=== PATIENT | female | born 1990 | race Hispanic/Latino ===

== ENCOUNTER 2018-04-24 11:05 | Emergency (ER) | payer OTHER, SELFPAY ==
[2018-04-24] MEDS ORDERED: IBUPROFEN 400 MG TAB ONE (14:29)
--- NOTE | 2018-04-24 15:12 | EDPHYS ---
Physician Documentation [facility] Name: Kim Holman Age: 28 yrs Sex: Female : 1990 Arrival Date: 04/24/2018 Time: 11:08 Bed 9 Private MD: None, None ED Physician Julio Rivera HPI: 04/24 14:16 This 28 yrs old Female presents to ER via Ambulatory with complaints of Flu jmm Symptoms. 14:16 The patient or guardian reports cough, described as moderate. Onset: The jmm symptoms/episode began/occurred 1 day(s) ago. Modifying factors: The symptoms are alleviated by nothing. the symptoms are aggravated by nothing. Associated signs and symptoms: Pertinent positives: fever, sore throat. This is a 28 year old female with no chronic medical conditions that presents to the ED with complaints of cough, sore throat, and fever beginning last night. Patient states a relative was recently diagnosed with strep. . 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 - Social history:: Smoking status: Patient uses tobacco products, smokes one-half pack cigarettes per day. - Ebola Screening: : No symptoms or risks identified at this time. ROS: 14:16 Eyes: Negative for injury, pain, redness, and discharge. jmm 14:16 Neck: Negative for injury, pain, and swelling, Cardiovascular: Negative for chest pain, palpitations, and edema. 14:16 Constitutional: Positive for fever. 14:16 ENT: Positive for sore throat. 14:16 Respiratory: Positive for cough. 14:16 All other systems are negative. Exam: 14:16 Constitutional: This is a well developed, well nourished patient who is awake, alert, jmm and in no acute distress. Head/Face: atraumatic. Eyes: EOMI, no conjunctival erythema appreciated 14:16 Chest/axilla: Normal chest wall appearance and motion. Cardiovascular: Regular rate and rhythm. No edema appreciated 14:16 Abdomen/GI: Non distended, soft Back: Normal ROM Skin: General appearance color normal MS/ Extremity: Moves all extremities, no obvious deformities appreciated, no edema noted to the lower extremities Neuro: Awake and alert, normal gait Psych: Behavior is normal, Mood is normal, Patient is cooperative and pleasant 14:16 ENT: TM's: are normal, Posterior pharynx: erythema, that is mild. 14:16 Neck: ROM/movement: is normal. 14:16 Respiratory: the patient does not display signs of respiratory distress, Respirations: normal, Breath sounds: are clear throughout. Vital Signs: 11:47 BP 131 / 81; Pulse 110; Resp 18 S; Temp 99.8(O); Pulse Ox 99% on R/A; Weight 68.04 kg aa5 (R); Height 5 ft. 0 in. (152.40 cm) (R); Pain 5/10; 15:29 BP 130 / 80; Pulse 99; Resp 18; Temp 99.9; Pulse Ox 100% on R/A; dm5 11:47 Body Mass Index 29.29 (68.04 kg, 152.40 cm) aa5 MDM: 15:11 Data reviewed: vital signs, nurses notes. Counseling: I had a detailed discussion with juanita the patient and/or guardian regarding: the historical points, exam findings, and any diagnostic results supporting the discharge/admit diagnosis, lab results, the need for outpatient follow up, to return to the emergency department if symptoms worsen or persist or if there are any questions or concerns that arise at home. ED course: Patient is alert and non toxic in appearance in the ED. No signs of resp distress is appreciated. Patient is advised to follow up with pcp and otherwise given strict return precautions. patient understood and agrees with the plan of care. . 04/24 14:16 Order name: Flu; Complete Time: 15:01 [facility] 04/24 14:16 Order name: Strep; Complete Time: 15:01 [facility] Administered Medications: 14:27 Drug: Motrin 800 mg Route: PO; dm5 15:30 Follow up: Response: No adverse reaction; Temperature is decreased dm5 Disposition: 15:41 Co-signature as Attending Physician, Julio Rivera MD. rn Disposition: 04/24/18 15:12 Discharged to Home. Impression: Streptococcal pharyngitis, Influenza due to certain identified influenza viruses. - Condition is Stable. - Discharge Instructions: Influenza, Adult, Strep Throat. - Prescriptions for Amoxicillin 875 mg Oral Tablet - take 1 tablet by ORAL route every 12 hours for 10 days; 20 tablet. Tamiflu 75 mg Oral Capsule - take 1 tablet by ORAL route every 12 hours for 5 days; 10 tablet. - Medication Reconciliation Form, Thank You Letter, Antibiotic Education, Prescription Opioid Use form. - Follow up: Private Physician; When: 2 - 3 days; Reason: Recheck today's complaints, Continuance of care, Re-evaluation by your physician. Signatures: Dispatcher [employer] Emilie Kingston, RN RN dm5 Gaston Arshad PA PA jmm Nieto, Roman, MD MD rn Calderon, Audri RN RN aa5 Corrections: (The following items were deleted from the chart) 13:47 13:45 Patient medically screened. juanita grant 15:31 15:12 04/24/2018 15:12 Discharged to Home. Impression: Streptococcal pharyngitis; dm5 Influenza due to certain identified influenza viruses. Condition is Stable. Forms are Medication Reconciliation Form, Thank You Letter, Antibiotic Education, Prescription Opioid Use. Follow up: Private Physician; When: 2 - 3 days; Reason: Recheck today's complaints, Continuance of care, Re-evaluation by your physician. juanita
--- NOTE | 2018-04-24 15:12 | ER ---
Nurse's Notes [facility] Name: Kim Holman Age: 28 yrs Sex: Female : 1990 Arrival Date: 04/24/2018 Time: 11:08 Bed 9 Private MD: None, None Diagnosis: Streptococcal pharyngitis;Influenza due to certain identified influenza viruses Presentation: 04/24 11:46 Presenting complaint: Patient states: cough, sore throat, low grade fever, and fatigue aa5 that began last night. Transition of care: patient was not received from another setting of care. Onset of symptoms was April 2018. Risk Assessment: Do you want to hurt yourself or someone else? Patient reports no desire to harm self or others. Initial Sepsis Screen: Does the patient meet any 2 criteria? No. Patient's initial sepsis screen is negative. Does the patient have a suspected source of infection? No. Patient's initial sepsis screen is negative. Care prior to arrival: None. 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 - Social history:: Smoking status: Patient uses tobacco products, smokes one-half pack cigarettes per day. - Ebola Screening: : No symptoms or risks identified at this time. Screenin:30 Abuse screen: Denies threats or abuse. Nutritional screening: No deficits noted. aa5 Tuberculosis screening: No symptoms or risk factors identified. Fall Risk None identified. Assessment: 13:30 General: Appears uncomfortable, Behavior is calm, cooperative, Reports fatigue. Pain: aa5 Complains of pain in throat. Neuro: Level of Consciousness is awake, alert, obeys commands, Oriented to person, place, time, situation. Cardiovascular: Heart tones S1 S2 present Rhythm is regular. Respiratory: Reports cough Airway is patent Respiratory effort is even, unlabored, Respiratory pattern is regular, symmetrical, Breath sounds are clear bilaterally. GI: No signs and/or symptoms were reported involving the gastrointestinal system. : No signs and/or symptoms were reported regarding the genitourinary system. EENT: Throat is reddened. Derm: Skin is pink, warm \T\ dry. Musculoskeletal: Range of motion: intact in all extremities. Vital Signs: 11:47 BP 131 / 81; Pulse 110; Resp 18 S; Temp 99.8(O); Pulse Ox 99% on R/A; Weight 68.04 kg aa5 (R); Height 5 ft. 0 in. (152.40 cm) (R); Pain 5/10; 15:29 BP 130 / 80; Pulse 99; Resp 18; Temp 99.9; Pulse Ox 100% on R/A; dm5 11:47 Body Mass Index 29.29 (68.04 kg, 152.40 cm) aa5 ED Course: 11:08 Patient arrived in ED. mr 11:09 Justice Valles MD is Private Physician. mr 11:09 None, None is Private Physician. mr 11:45 Arm band placed on. aa5 11:45 Patient has correct armband on for positive identification. aa5 11:46 Triage completed. aa5 13:30 Ariella Barrios, JONY is Primary Nurse. aa5 13:39 Gaston Arshad PA is PHCP. [facility] 13:39 Julio Rivera MD is Attending Physician. [facility] 15:30 No provider procedures requiring assistance completed. Patient did not have IV access aa5 during this emergency room visit. Administered Medications: 14:27 Drug: Motrin 800 mg Route: PO; dm5 15:30 Follow up: Response: No adverse reaction; Temperature is decreased dm5 Outcome: 15:12 Discharge ordered by . [facility] 15:31 Discharged to home ambulatory. dm5 15:31 Condition: good 15:31 Discharge instructions given to patient, Instructed on discharge instructions, follow up and referral plans. medication usage, Demonstrated understanding of instructions, follow-up care, medications. 15:31 Patient left the ED. dm5 Signatures: Emilie Cabrera RN RN dm5 Gaston Arshad PA PA jmm Rivera, Mary mr Ariella Barrios RN RN aa5 Corrections: (The following items were deleted from the chart) 19:02 13:30 General: Appears uncomfortable, Behavior is calm, cooperative, aa5 aa5 19:02 13:30 Pain: Complains of pain in cough aa5 aa5 19:02 13:30 Respiratory: Airway is patent Respiratory effort is even, unlabored, Respiratory aa5 pattern is regular, symmetrical, Breath sounds are clear bilaterally. aa5
== END 2018-04-24 15:31 | disposition home or self-care (01) ==
LOC: ER 11:05
DX: J02.0 Streptococcal pharyngitis (principal); J10.1 Influenza due to other identified influenza virus with other respiratory manifestations; F17.210 Nicotine dependence, cigarettes, uncomplicated
CPT/HCPCS: 87081; 87804; 99283

== ENCOUNTER 2019-10-08 17:15 | Emergency (ER) | payer BC, SELFPAY ==
--- NOTE | 2019-10-08 19:01 | RAD REPORT ---
EXAM DESCRIPTION: US - Abdomen Exam Limited - 10/08/2019 6:42 pm CLINICAL HISTORY: ABD PAIN COMPARISON: No comparisons FINDINGS: No gallstones identified. A 4 millimeter nonshadowing echogenic focus along the gallbladde r wall is probably a small polyp. No measurable sludge. There is no wall thickening or pericholecysti c fluid. No common duct stone or biliary tree dilatation identified. IMPRESSION: No acute gallbladder or biliary tree finding. A 4 millimeter polyp is seen along the wall of the gallbladder, not regarded as significant.
[2019-10-08 19:42] LABS: Urine Blood NEGATIVE (NEG); Urine Glucose NEGATIVE (NEG); Urine Protein NEGATIVE (NEG); Urine Specific Gravity 1.025 (1.005-1.030)
[2019-10-08] MEDS ORDERED: KETOROLAC 30 MG/ML INJ ONE (20:11)
--- NOTE | 2019-10-08 20:12 | RAD REPORT ---
EXAM DESCRIPTION: RAD - Chest Single View - 10/08/2019 7:47 pm CLINICAL HISTORY: CHEST PAIN COMPARISON: None TECHNIQUE: AP portable chest image was obtained 10/08/2019 7:47 pm . FINDINGS: Lungs are clear. Heart and vasculature are normal. No measurable pleural effusion and no p neumothorax. No acute bony abnormality seen. No acute aortic findings suspected. IMPRESSION: No acute cardiopulmonary process.
[2019-10-08 20:19] LABS: Absolute Lymphocytes (CBC) 3.8 K/uL (0.7-4.9); Basophils % 0.8 % (0-1.3); Hematocrit 39.6 % (36.0-45.0); Lymphocytes % 36.6 % (15.3-44.8); MPV 9.4 fL (7.6-11.3); RBC Red Blood Cell Count 4.63 M/uL (3.86-4.86)
[2019-10-08 20:30] LABS: ALT/SGPT 26 U/L (12-78); AST/SGOT 17 U/L (15-37); Albumin 3.7 g/dL (3.4-5.0); Alkaline Phosphatase 83 U/L (45-117); BUN Blood Urea Nitrogen 11 mg/dL (7-18); Bicarbonate 23 mmol/L (21-32); Bilirubin Direct < 0.1 mg/dL (0-0.2); Bilirubin Total 0.2 mg/dL (0.2-1.0); Glucose Level 95 mg/dL (74-106); Lipase 174 U/L (73-393); Potassium 3.7 mmol/L (3.5-5.1); Protein, Total 7.5 g/dL (6.4-8.2); Sodium Level 141 mmol/L (136-145)
--- NOTE | 2019-10-08 20:36 | EDPHYS ---
Physician Documentation [facility] Name: Kim Holman Age: 29 yrs Sex: Female : 1990 Arrival Date: 10/08/2019 Time: 17:21 Bed 6 Private MD: ED Physician Kenny Mckoen HPI: 10/07 21:21 This 29 yrs old Female presents to ER via Ambulatory with complaints of kb Abdominal Pain. 21:21 The patient presents with abdominal pain in the right upper quadrant. Onset: The kb symptoms/episode began/occurred 3 day(s) ago. The symptoms do not radiate. Associated signs and symptoms: none. The symptoms are described as intermittent. Modifying factors: The symptoms are alleviated by nothing, the symptoms are aggravated by nothing. Severity of pain: At its worst the pain was moderate in the emergency department the pain is unchanged. The patient has not experienced similar symptoms in the past. The patient has not recently seen a physician. 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 - Social history:: Smoking status: Patient reports the use of cigarette tobacco products, smokes one-half pack cigarettes per day. ROS: 21:18 Constitutional: Negative for fever, chills, and weight loss, ENT: Negative for injury, kb pain, and discharge, Neck: Negative for injury, pain, and swelling, Respiratory: Negative for shortness of breath, cough, wheezing, and pleuritic chest pain, Back: Negative for injury and pain, MS/Extremity: Negative for injury and deformity, Skin: Negative for injury, rash, and discoloration, Neuro: Negative for headache, weakness, numbness, tingling, and seizure. 21:18 Cardiovascular: Positive for chest pain, of the right breast, Negative for edema, orthopnea, palpitations, paroxysmal nocturnal dyspnea. 21:18 Abdomen/GI: Positive for abdominal pain, Negative for nausea, vomiting, and diarrhea. Exam: 21:20 Constitutional: This is a well developed, well nourished patient who is awake, alert, kb and in no acute distress. Head/Face: Normocephalic, atraumatic. Cardiovascular: Regular rate and rhythm with a normal S1 and S2. No gallops, murmurs, or rubs. Normal PMI, no JVD. No pulse deficits. Respiratory: Lungs have equal breath sounds bilaterally, clear to auscultation and percussion. No rales, rhonchi or wheezes noted. No increased work of breathing, no retractions or nasal flaring. Back: No spinal tenderness. No costovertebral tenderness. Full range of motion. Skin: Warm, dry with normal turgor. Normal color with no rashes, no lesions, and no evidence of cellulitis. MS/ Extremity: Pulses equal, no cyanosis. Neurovascular intact. Full, normal range of motion. Neuro: Awake and alert, GCS 15, oriented to person, place, time, and situation. Cranial nerves II-XII grossly intact. Motor strength 5/5 in all extremities. Sensory grossly intact. Cerebellar exam normal. Normal gait. 21:20 Chest/axilla: Inspection: normal, Palpation: tenderness, that is mild, of the right breast, that totally reproduces the patient's complaints. 21:20 Abdomen/GI: Inspection: abdomen appears normal, Bowel sounds: normal, in all quadrants, Palpation: soft, in all quadrants, mild abdominal tenderness, in the right upper quadrant. Vital Signs: 17:42 BP 133 / 89; Pulse 78; Resp 16; Temp 97.6; Pulse Ox 100% on R/A; Weight 68.04 kg; iw Height 5 ft. 0 in. (152.40 cm); Pain 6/10; 20:45 BP 121 / 75; Pulse 75; Resp 18; Pulse Ox 99% ; Pain 1/10; rr5 17:42 Body Mass Index 29.29 (68.04 kg, 152.40 cm) iw MDM: 19:14 Patient medically screened. kb 20:38 Data reviewed: vital signs, nurses notes, lab test result(s), radiologic studies. Data kb interpreted: Pulse oximetry: on room air is 100 %. Interpretation: normal. Counseling: I had a detailed discussion with the patient and/or guardian regarding: the historical points, exam findings, and any diagnostic results supporting the discharge/admit diagnosis, lab results, radiology results, the need for outpatient follow up, a family practitioner, a cleaning laborer, to return to the emergency department if symptoms worsen or persist or if there are any questions or concerns that arise at home. Response to treatment: the patient's symptoms have markedly improved after treatment. 10/07 19:29 Order name: Basic Metabolic Panel; Complete Time: 20:32 kb 10/07 19:29 Order name: CBC with Diff; Complete Time: 20:23 kb 10/07 19:29 Order name: Hepatic Function; Complete Time: 20:32 kb 10/07 19:29 Order name: Lipase; Complete Time: 20:32 kb 10/07 19:30 Order name: Urine Dipstick--Ancillary (enter results); Complete Time: 19:42 kb 10/07 19:30 Order name: Urine --Ancillary (enter results); Complete Time: 19:42 kb 10/07 17:49 Order name: US Abdomen Limited; Complete Time: 19:10 kb 10/07 19:29 Order name: IV Saline Lock; Complete Time: 20:17 kb 10/07 19:29 Order name: Labs collected and sent; Complete Time: 20:17 kb 10/07 19:29 Order name: Chest Single View XRAY; Complete Time: 20:14 kb Administered Medications: 20:17 Drug: TORadol - Ketorolac 15 mg Route: IVP; Site: right antecubital; rr5 20:45 Follow up: Response: No adverse reaction rr5 Disposition: 10/08/19 20:35 Discharged to Home. Impression: Upper abdominal pain, unspecified. - Condition is Stable. - Discharge Instructions: Chest Wall Pain, [id number], Abdominal Pain, Adult, [id number]. - Prescriptions for Ibuprofen 800 mg Oral Tablet - take 1 tablet by ORAL route every 8 hours As needed take with food; 30 tablet. - Medication Reconciliation Form, Thank You Letter, Antibiotic Education, Prescription Opioid Use form. - Follow up: Emergency Department; When: As needed; Reason: Worsening of condition. Follow up: Private Physician; When: 2 - 3 days; Reason: Recheck today's complaints, Continuance of care, Re-evaluation by your physician. Signatures: Dispatcher [employer] Heidi Archibald, CHIEF INSPECTOR-C CHIEF INSPECTOR-Ckb Oskar, Radha, RN RN iw Fox, Ebenezer, RN RN rr5 Corrections: (The following items were deleted from the chart) 20:47 20:35 10/08/2019 20:35 Discharged to Home. Impression: Upper abdominal pain, rr5 unspecified. Condition is Stable. Forms are Medication Reconciliation Form, Thank You Letter, Antibiotic Education, Prescription Opioid Use. Follow up: Emergency Department; When: As needed; Reason: Worsening of condition. Follow up: Private Physician; When: 2 - 3 days; Reason: Recheck today's complaints, Continuance of care, Re-evaluation by your physician. kb
--- NOTE | 2019-10-08 20:36 | ER ---
Nurse's Notes [facility] Name: Kim Holman Age: 29 yrs Sex: Female : 1990 Arrival Date: 10/08/2019 Time: 17:21 Bed 6 Private MD: Diagnosis: Upper abdominal pain, unspecified Presentation: 10/07 17:42 Chief complaint: Patient states: sharp pain to RUQ, under right breast X 3 days, iw aggravated by movement and deep breathing, denies cough, denies nausea or vomiting. Coronavirus screen: At this time, the client does not indicate any symptoms associated with coronavirus-19. Ebola Screen: Patient negative for fever greater than or equal to 101.5 degrees Fahrenheit, and additional compatible Ebola Virus Disease symptoms Patient denies exposure to infectious person. Patient denies travel to an Ebola-affected area in the 21 days before illness onset. No symptoms or risks identified at this time. Initial Sepsis Screen: Does the patient meet any 2 criteria? No. Patient's initial sepsis screen is negative. Does the patient have a suspected source of infection? No. Patient's initial sepsis screen is negative. Risk Assessment: Do you want to hurt yourself or someone else? Patient reports no desire to harm self or others. Onset of symptoms was October 06, 2019. 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 - Social history:: Smoking status: Patient reports the use of cigarette tobacco products, smokes one-half pack cigarettes per day. Screenin:00 Abuse screen: Denies threats or abuse. Denies injuries from another. Nutritional rr5 screening: No deficits noted. Tuberculosis screening: No symptoms or risk factors identified. Fall Risk IV access (20 points). Total Carrillo Fall Scale indicates No Risk (0-24 pts). Assessment: 19:40 General: Appears in no apparent distress. uncomfortable, Behavior is calm, cooperative, rr5 appropriate for age. 19:40 Pain: Complains of pain in right upper quadrant Pain radiates to epigastric area Pain rr5 currently is 5 out of 10 on a pain scale. Quality of pain is described as aching, Pain began gradually, Is intermittent. Neuro: Level of Consciousness is awake, alert, obeys commands, Oriented to person, place, time, situation. Cardiovascular: Capillary refill < 3 seconds Patient's skin is warm and dry. Respiratory: Airway is patent Respiratory effort is even, unlabored, Respiratory pattern is regular, symmetrical. GI: Abdomen is round non-distended, Bowel sounds present X 4 quads. Abd is soft and non tender X 4 quads. Reports upper abdominal pain. : No signs and/or symptoms were reported regarding the genitourinary system. EENT: No signs and/or symptoms were reported regarding the EENT system. Derm: Skin is intact, is healthy with good turgor, Skin temperature is warm. Musculoskeletal: Capillary refill < 3 seconds. 20:45 Reassessment: Patient appears in no apparent distress at this time. Patient is alert, rr5 oriented x 3, equal unlabored respirations, skin warm/dry/pink. discharge instruction given and explained without complaints made. 20:45 Reassessment: Patient states feeling better. Patient states symptoms have improved. rr5 Vital Signs: 17:42 BP 133 / 89; Pulse 78; Resp 16; Temp 97.6; Pulse Ox 100% on R/A; Weight 68.04 kg; iw Height 5 ft. 0 in. (152.40 cm); Pain 6/10; 20:45 BP 121 / 75; Pulse 75; Resp 18; Pulse Ox 99% ; Pain 1/10; rr5 17:42 Body Mass Index 29.29 (68.04 kg, 152.40 cm) iw ED Course: 17:21 Patient arrived in ED. mr 17:44 Triage completed. iw 17:45 Arm band placed on. iw 17:49 Heidi Elliott FNP-C is PHCP. kb 17:49 Kenny Mckeon MD is Attending Physician. kb 18:42 US Abdomen Limited In Process Unspecified. EDMS 19:00 Patient has correct armband on for positive identification. Placed in gown. Bed in low rr5 position. Call light in reach. 19:23 Fox, Ebenezer, RN is Primary Nurse. rr5 19:47 Chest Single View XRAY In Process Unspecified. EDMS 19:55 Inserted saline lock: 20 gauge in right antecubital area, using aseptic technique. rr5 ,using aseptic technique. inserted by [facility] Blood collected. 20:46 No provider procedures requiring assistance completed. IV discontinued, intact, rr5 bleeding controlled, No redness/swelling at site. Pressure dressing applied. Administered Medications: 20:17 Drug: TORadol - Ketorolac 15 mg Route: IVP; Site: right antecubital; rr5 20:45 Follow up: Response: No adverse reaction rr5 Outcome: 20:35 Discharge ordered by MD. kb 20:46 Discharged to home ambulatory. rr5 20:46 Condition: stable 20:46 Discharge instructions given to patient, Instructed on discharge instructions, follow up and referral plans. medication usage, Demonstrated understanding of instructions, follow-up care, medications, Prescriptions given X 1. 20:47 Patient left the ED. rr5 Signatures: Dispatcher [employer] EDAK Heidi Elliott, KIMANI-Eric HARMAN-Brianna Boone Irene, RN RN iw Ebenezer Fox, RN RN rr5
== END 2019-10-08 20:47 | disposition home or self-care (01) ==
LOC: ER 17:15
DX: R10.11 Right upper quadrant pain (principal); F17.210 Nicotine dependence, cigarettes, uncomplicated
CPT/HCPCS: 36415; 71045; 76705; 80048; 80076; 81003; 81025; 83690; 85025; 96374; 99284